=== PATIENT | male | born 1955 | race Caucasian/White ===

== ENCOUNTER 2021-06-20 15:43 | Emergency (ER) | payer OTHER ==
[~2021-06-20] VITALS: Ht 185.4 cm; Wt 142.9 kg
[2021-06-20] MEDS ORDERED: OXYBUTYNIN CHLOR5 MG PO (16:17)
[2021-06-20] MEDS ORDERED: MELATONIN5 M6 PO (16:17)
[2021-06-20] MEDS ORDERED: ONDANSETRON ODT8 MG PO (16:17)
[2021-06-20] MEDS ORDERED: GLUCOTROL XL10 MG PO (16:17)
[2021-06-20] MEDS ORDERED: METFORMIN HCL500 M3 PO (16:18)
[2021-06-20] MEDS ORDERED: ZOCOR40 MG PO (16:18)
[2021-06-20] MEDS ORDERED: BUSPIRONE HCL10 MG PO (16:18)
[2021-06-20] MEDS ORDERED: ALOGLIPTIN25 MG PO (16:19)
[2021-06-20] MEDS ORDERED: CLONIDINE HCL0.1 MG PO (16:19)
[2021-06-20] MEDS ORDERED: JARDIANCE25 MG PO (16:19)
[2021-06-20] MEDS ORDERED: LEXAPRO10 MG PO (16:20)
[2021-06-20] MEDS ORDERED: HYDROCIL INSTA1 EACH (16:20)
--- NOTE | 2021-06-20 21:20 | EKG ---
[facility] [address] [facility] [place], [place] [address] Signed Normal sinus rhythm Normal ECG No previous ECGs available Confirmed by MELISSA KIRKPATRICK DO ([id number]) on 06/20/2021 9:20:41 PM Electronically Signed By: MELISSA KIRKPATRICK DO 06/20/212119 PATIENT NAME: GREYSON SALAS Electrocardiogram DATE OF : 57 PHYSICIAN: MELISSA KIRKPATRICK DO REPORT #: [id number] REPORT IS CONFIDENTIAL AND NOT TO BE RELEASED WITHOUT AUTHORIZATION
== END 2021-06-20 19:27 | disposition home or self-care (01) ==
LOC: ED 15:43
DX: R42 Dizziness and giddiness (principal); Z79.899 Other long term (current) drug therapy
CPT/HCPCS: 70450; 71045; 80053; 84484; 85025; 93005; 93010; 96374; 99284-25; J2405

== ENCOUNTER 2023-07-17 16:24 | Emergency (ER) | payer OTHER ==
[~2023-07-17 16:24] MED LIST: ALOGLIPTIN25 MG PO; BUSPIRONE HCL10 MG PO; CLONIDINE HCL0.1 MG PO; DOXYCYCLINE HY100 MG PO; GLUCOTROL XL10 MG PO; HYDROCIL INSTA1 EACH; HYDROCODON-ACE1 EA10 PO; JARDIANCE25 MG PO; LEXAPRO10 MG PO; MELATONIN5 M6 PO; METFORMIN HCL500 M3 PO; ONDANSETRON ODT8 MG PO; OXYBUTYNIN CHLOR5 MG PO; ZOCOR40 MG PO
[2023-07-17] MEDS ORDERED: LANTUS100 UNITS/ (16:45)
[2023-07-17] MEDS ORDERED: MINIPRESS2 MG (16:47)
[2023-07-17 18:08] VITALS: BP 134/56
== END 2023-07-17 18:05 | disposition home or self-care (01) ==
LOC: ED 16:24
DX: S09.90XA Unspecified injury of head, initial encounter (principal); S16.1XXA Strain of muscle, fascia and tendon at neck level, initial encounter; E11.9 Type 2 diabetes mellitus without complications; W11.XXXA Fall on and from ladder, initial encounter; Z79.84 Long term (current) use of oral hypoglycemic drugs; Z79.4 Long term (current) use of insulin; Z79.899 Other long term (current) drug therapy
CPT/HCPCS: 70450; 72125; 73030; 73130; 74176; 99284-25; A9270

== ENCOUNTER 2024-09-08 08:05 | Day surgery (SDC) | payer OTHER ==
[~2024-09-08] VITALS: Ht 185.4 cm; Wt 140.0 kg
[~2024-09-08 08:05] MED LIST changes: +ASPIRIN81 MG PO; +CEFAZOLIN SODIUM 2 GM/20 ML SYR IV SCH; +CRESTOR40 MG PO; +ESCITALOPRAM OX10 MG PO; +IBLOOD GLUCOSE TEST STRIP 1 EA TEST VI PRN; +LACTATED RINGER'S 1,000 ML IV SCH; +LANTUS100 UNITS/ SUB-Q; +LIDOCAINE HCL 1% 5 ML SDV INJ ONE; +MINIPRESS2 MG; +VITAMIN D350 MC3 PO
[2024-09-08] MEDS ORDERED: BUPROPION HCL75 MG PO (08:35)
[2024-09-08] MEDS ORDERED: VITAMIN B COMP1 EACH PO (08:40)
[2024-09-08 08:56] VITALS: BP 118/74
[2024-09-08] MEDS ORDERED: LIDOCAINE HCL 2% 5 ML SDV ONE (09:48)
[2024-09-08] MEDS ORDERED: propofoL 200 MG/20 ML VIAL ONE (09:48)
--- NOTE | 2024-09-08 10:12 | NUR ---
09/08/24 Radha2 Ly Kwon 1009-PATIENT ARRIVED TO PACU ON 6L MASK RR EVEN. PATIENT NONAROUSABLE LAYING LEFT LATERAL ABDOMEN ROUND AND SOFT. IVF INFUSING. SR HR 70'S. PER DEBRA INTERNAL SECURITY MANAGER DO NOT NEED TO RECHECK GLUCOSE LEVEL
[2024-09-08 10:43] VITALS: BP 128/75
--- NOTE | 2024-09-09 12:58 | EKG ---
[facility] [address] [facility] [place] [address] Signed Normal sinus rhythm Right bundle branch block Abnormal ECG When compared with ECG of 06-SEP-2024 08:40, No significant change was found Confirmed by Mary Bucio DO ([id number]) on 09/09/2024 12:58:30 PM Electronically Signed By: MARY BUCIO DO 09/09/24 1258 PATIENT NAME: GREYSON SALAS Electrocardiogram DATE OF : 57 PHYSICIAN: MARY BUCIO DO REPORT #: [id number] REPORT IS CONFIDENTIAL AND NOT TO BE RELEASED WITHOUT AUTHORIZATION
--- NOTE | 2024-09-13 07:22 | OR ---
[facility] [address] [place], [place] [address] Signed DATE OF OPERATION: 09/08/2024 SURGEON: Bony Hopper MD PREOPERATIVE DIAGNOSES: Screening. POSTOPERATIVE DIAGNOSIS: Poor bowel prep. PROCEDURE: Sigmoidoscopy (left colon). ESTIMATED BLOOD LOSS: None. INDICATIONS: Clint is a 69-year-old obese diabetic gentleman, asked to see me for a 2nd colonoscopy. He spoke of a colonoscopy around 2010 at the age of 55 when he was living in [place]. He said he had it through the [place] [facility]. Unfortunately, we did not have those results. He said he was here for routine screening purposes. He has no family history of colon cancer or polyps. He has no lower GI complaints. He lives 25 miles away in [place], [place]. He said it is a little difficult to find someone to take him home afterwards. He understands someone 18 and above has to take him home. It looks like he has a friend who can do that for him today. In the office, I gave him a pamphlet on colonoscopy. We had reviewed the nature of the test. There is risk including, but not limited to gas bloating, crampy abdominal pain, bleeding, perforation requiring surgery, and missed diagnosis. We also reviewed the written instructions for a bowel prep line by line. We also went through his medications. Because of his size with a body mass index of 41 and his history of COPD and a previous history of alcohol and drug abuse, we asked for monitored anesthesia care with propofol infusion. He also has had a neck fusion. We did ask him to hold the aspirin and naproxen 3 days prior to the procedure. He is always welcome to use some Tylenol. We also marked our preop sheet appropriately for his diabetic medications. He had expressed understanding and wished to proceed. DESCRIPTION OF PROCEDURE: Clint was taken into our endoscopy suite and placed in the left lateral decubitus position. He was given monitored anesthesia care with propofol infusion per our nurse military source operations specialist. A digital rectal exam was performed. He is a large man. I was not able to reach his prostate gland. After this, the adult colonoscope was introduced. We Electronically Signed By: BONY HOPPER MD 09/13/24 0722 PATIENT NAME: CLINT SALAS OPERATIVE REPORT DATE OF : 57 REPORT #: [id number] PHYSICIAN: BONY HOPPER MD PCP: RAY GONZALES REPORT IS CONFIDENTIAL AND NOT TO BE RELEASED WITHOUT AUTHORIZATION [facility] [address] [place] [id number] Signed immediately encountered thick liquid particulate stool matter. We made our way up carefully through the sigmoid colon into the left colon. Eventually, we reached a complete wall of thick particulate liquid stool. We just simply could not advance the scope any further. Therefore, the scope had to be withdrawn. We found no pathology whatsoever. The gas had been suctioned out and the colonoscope removed. Clint tolerated the procedure well. RECOMMENDATIONS: Clint needs to reschedule his colonoscopy with monitored anesthesia care over the next 6 to 12 months. He needs to take a full gallon of polyethylene glycol preceded by one bottle of magnesium citrate. Bony Hopper MD ALB/MODL /[id number] cc: [facility], Maria T Rain MD Copies: BONY HOPPER MD ~ Electronically Signed By: BONY HOPPER MD 09/13/24 0722 PATIENT NAME: CLINT SALAS OPERATIVE REPORT DATE OF : 57 REPORT #: [id number] PHYSICIAN: BONY HOPPER MD PCP: RAY GONZALES REPORT IS CONFIDENTIAL AND NOT TO BE RELEASED WITHOUT AUTHORIZATION
== END 2024-09-08 10:50 | disposition home or self-care (01) ==
LOC: DS 08:05
PROVIDERS: ATTEND Colon & Rectal Surgery
PROC: 0DJD8ZZ Inspection of Lower Intestinal Tract, Via Natural or Artificial Opening Endoscopic (ICD-10-PCS; principal; 2024-09-08 09:50)
DX: Z12.11 Encounter for screening for malignant neoplasm of colon (principal); E66.9 Obesity, unspecified; E11.9 Type 2 diabetes mellitus without complications; F43.10 Post-traumatic stress disorder, unspecified; K21.9 Gastro-esophageal reflux disease without esophagitis; J44.9 Chronic obstructive pulmonary disease, unspecified; E78.5 Hyperlipidemia, unspecified; F31.9 Bipolar disorder, unspecified; Z68.41 Body mass index [BMI] 40.0-44.9, adult; Z79.84 Long term (current) use of oral hypoglycemic drugs; Z79.899 Other long term (current) drug therapy; Z88.8 Allergy status to other drugs, medicaments and biological substances
CPT/HCPCS: 00812; 93005; 93010; J0690; J2003; J2704; J7121